=== PATIENT | female | born 1995 | race African-American/Black ===

== ENCOUNTER 2016-05-13 12:13 | Emergency (ER) | payer OTHER ==
[~2016-05-13] VITALS: Ht 167.6 cm; Wt 50.8 kg
--- NOTE | ~2016-05-13 | EKG ---
[place] [address] [facility] [employer] [place] [address] ELECTROCARDIOGRAM REPORT Name: HORTENCIA MCGEE Room #: DEP MANINDER Nolan#: [id number] Admission: 05/13/16 Attend Phys: Discharge: 05/13/16 Date of : [birth year] Report #: [id number] THIS REPORT FOR: //name// [facility] ED Test Date: 2016-05-13 Test Time: 12:20:10 Pat Name: HORTENCIA MCGEE Department: Room: Gender: F Director Of [employer]: : 1995 Requested By: Ginette Kinney Order Number: [id number] MD: Eric Segura Measurements Intervals [place] Rate: 88 P: 79 [place]: 161 QRS: 66 QRSD: 85 T: 49 QT: 365 QTc: 442 Interpretive Statements Sinus rhythm Probable left atrial enlargement RSR' in V1 or V2, probably normal variant No previous ECG available for comparison Electronically Signed On 05-14-2016 8:02:17 RIPSAWYER by Eric Segura [email or web address] <ELECTRONICALLY SIGNED> By: Eric Segura MD 05/14/16 0802 1220 1220 Eric Segura MD /YAA
[~2016-05-13 12:13] MED LIST: ACCUNEB SO1.25 MG/1 INH; IBUPROFEN 400400 M2 PO
[2016-05-13] MEDS ORDERED: TRINATE TABLET1 TAB PO (12:46)
[2016-05-13 13:12] LABS: URINE BILIRUBIN NEGATIVE (Negative); URINE BLOOD NEGATIVE (Negative); URINE COLOR YELLOW; URINE GLUCOSE-RANDOM* NEGATIVE (Negative); URINE KETONES 1+ (Negative); URINE NITRITE POSITIVE (Negative); URINE PROTEIN (DIPSTICK) TRACE (Negative); URINE SPECIFIC GRAVITY 1.025 (1.003-1.035); URINE UROBILINOGEN 0.2 E.U./dl (0.2-1.0)
[2016-05-13 13:18] LABS: HEMOGLOBIN 11.7 gm/dL (12.0-15.0); MCH 31.2 pg (26.0-34.0); MCHC 33.4 % (28.0-37.0); MCV 93.4 fL (80.0-100.0); PLATELET COUNT 208 thou/uL (150-400); RBC 3.75 mil/uL (4.20-5.00); RDW 12.4 % (10.5-14.5); WBC 2.9 thou/uL (4.0-11.0)
[2016-05-13 13:20] LABS: MANUAL DIFF YES
[2016-05-13 13:24] LABS: CALCIUM 8.5 mg/dL (8.5-10.1); CREATININE 0.7 mg/dL (0.6-1.3); POTASSIUM 3.5 mmol/L (3.5-5.1)
[2016-05-13 13:40] LABS: CASTS None Seen /LPF (None Seen); CRYSTALS None Seen /LPF (None Seen); SQUAMOUS >10 Many /LPF (0-3)
[2016-05-13 13:41] LABS: BACTERIA >30 Many /HPF (None Seen); URINE RBC 0-2 Rare /HPF (0-2); URINE WBC >25 Many /HPF (0-5)
[2016-05-13 14:37] LABS: ABSOLUTE NEUTROPHILS 1.5 thou/uL (1.4-8.2); TOTAL CELL COUNT 100
[2016-05-13] MEDS ORDERED: VITAFOL-OB+DHA1 EACH PO (15:03)
[2016-05-13] MEDS ORDERED: KEFLEX500 MG PO (15:03)
[2016-05-13 15:33] VITALS: BP 99/55
[2016-05-16 13:10] LABS: CHLAMYDIA TRACHOMATIS-PCR Negative (Negative); NEISSERIA GONORRHEA-PCR Negative (Negative)
== END 2016-05-13 15:34 | disposition home or self-care (01) ==
LOC: ER 12:13
PROVIDERS: Physician Assistant
DX: O23.41 Unspecified infection of urinary tract in pregnancy, first trimester (principal); Z3A.01 Less than 8 weeks gestation of pregnancy; R07.89 Other chest pain; J45.909 Unspecified asthma, uncomplicated